=== PATIENT | male | born 1985 | race Two or more races ===

== ENCOUNTER → 2025-03-09 | Outpatient (BNVA) | payer OTHER, SELFPAY | END | disposition home or self-care (01) | PROVIDERS: PCP Family Medicine; Referring Provider Family Medicine; Visit Provider Student in an Organized Health Care Education/Training Program | DX: N50.82 Scrotal pain (principal); N52.9 Male erectile dysfunction, unspecified; N50.3 Cyst of epididymis | CPT/HCPCS: 99202; G0463 ==

== ENCOUNTER → 2025-05-11 | Outpatient (BNVA) | payer OTHER, SELFPAY | END | disposition home or self-care (01) | PROVIDERS: PCP Family Medicine; Referring Provider Family Medicine; Visit Provider Student in an Organized Health Care Education/Training Program | DX: N50.3 Cyst of epididymis (principal) | CPT/HCPCS: 99212; G0463 ==

== ENCOUNTER → 2025-05-23 | Outpatient (CLI) | payer OTHER, SELFPAY ==
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
== END | disposition home or self-care (01) ==
DX: J32.0 Chronic maxillary sinusitis (principal)
CPT/HCPCS: 70551